=== PATIENT | female | born 1950 | race Caucasian/White ===

== ENCOUNTER → 2017-01-27 | Outpatient (CLI) | payer MEDICARE, OTHER ==
--- NOTE | 2017-01-28 07:34 | REP ---
LEFT FINGERS, FOUR VIEWS: HISTORY: Injury. There is a nondisplaced fracture of the distal phalange of the second digit. There is no dislocation. The joint spaces are normal in appearance. IMPRESSION: Nondisplaced fracture of the distal phalange of the second digit. Signed by Jose Luis Foley MD 01/28/2017 09:01 A
== END ==
LOC: M WUC 17:17
PROVIDERS: ATTEND Physician Assistant
DX: S67.191A Crushing injury of left index finger, initial encounter (principal); W18.30XA Fall on same level, unspecified, initial encounter; Y92.009 Unspecified place in unspecified non-institutional (private) residence as the place of occurrence of the external cause

== ENCOUNTER → 2017-09-24 | Outpatient (CLI) | payer MEDICARE, OTHER | LOC: M WUC 10:29 | DX: S60.212A Contusion of left wrist, initial encounter (principal); X58.XXXA Exposure to other specified factors, initial encounter; Y92.9 Unspecified place or not applicable | CPT/HCPCS: 73100 ==

== ENCOUNTER → 2018-11-03 | Outpatient (REF) | payer MEDICARE, OTHER ==
[2018-11-03 19:33] LABS: MALB URINE SIEMENS 24.9 MG/L; MAU/CREAT RATIO 13.1 MCG/MG (0.0-30.0)
== END ==
LOC: M LAB REF 16:49
PROVIDERS: ATTEND Internal Medicine
DX: E11.9 Type 2 diabetes mellitus without complications (principal)

== ENCOUNTER → 2020-03-15 | Outpatient (CLI) | payer SELFPAY | LOC: M LABSMTC 10:17 | PROVIDERS: ATTEND Pediatrics | DX: Z20.828 Contact with and (suspected) exposure to other viral communicable diseases (principal) ==

== ENCOUNTER → 2021-09-05 | Outpatient (CLI) | payer MEDICARE, OTHER | LOC: M WHC 10:54 | PROVIDERS: ATTEND Internal Medicine | DX: Z12.31 Encounter for screening mammogram for malignant neoplasm of breast (principal) ==

== ENCOUNTER 2022-09-01 11:15 | Emergency (ER) | payer MEDICARE, OTHER ==
[~2022-09-01] VITALS: Ht 157.5 cm; Wt 66.7 kg
[2022-09-01] MEDS ORDERED: PANT40TA29 (12:09)
[2022-09-01] MEDS ORDERED: ATEN25TA (12:09)
[2022-09-01] MEDS ORDERED: CHLO125TA PO (12:09)
[2022-09-01] MEDS ORDERED: MONT10TA97 (12:09)
[2022-09-01] MEDS ORDERED: ASPI1TAB22 PO (12:09)
[2022-09-01] MEDS ORDERED: AMOX875T2 (12:09)
[2022-09-01] MEDS ORDERED: GLYC2TAB18 (12:09)
[2022-09-01] MEDS ORDERED: METF500T13 (12:09)
[2022-09-01] MEDS ORDERED: ATOR80TA59 (12:09)
[2022-09-01] MEDS ORDERED: NORT25CA2 (12:09)
[2022-09-01] MEDS ORDERED: FLUC200T4 (12:09)
[2022-09-01] MEDS ORDERED: LOSA100T46 (12:09)
[2022-09-01] MEDS ORDERED: NS 1,000 ML IV ONE ×2 (12:30→14:35)
[2022-09-01 12:49] LABS: VENOUS BASE EXCESS 1.8 (-2.0-2.0); VENOUS HCO3 27.4 MMOL/L (23.0-27.0); VENOUS O2 SATURATION 77.2 % (60.0-80.0); VENOUS PARTIAL PRESSURE CO2 46.6 mmHg (38.0-50.0); VENOUS PARTIAL PRESSURE O2 42.5 mmHg (30.0-50.0); VENOUS PH 7.388 UNITS (7.330-7.430); VENOUS STANDARD HCO3 25.5 MMOL/L; VENOUS TOTAL CO2 28.9 MMOL/L (24.0-28.0)
[2022-09-01 13:05] LABS: BASO % 0.4 % (0.0-1.0); EOS # 0.2 10^3/uL (0.0-0.5); EOS % 1.5 % (0.0-3.0); HEMATOCRIT 41.4 % (36.0-47.0); HEMOGLOBIN 14.1 g/dl (12.0-15.5); LYMPH # 2.5 10^3/uL (1.5-5.0); LYMPH % 23.7 % (24.0-44.0); MEAN CORPUSCULAR HEMOGLOBIN 29.7 pg (27.0-33.0); MEAN CORPUSCULAR HGB CONC 34.1 g/dl (32.0-36.5); MEAN CORPUSCULAR VOLUME 87.2 fl (80.0-96.0); MONO # 0.8 10^3/uL (0.0-0.8); MONO % 7.8 % (2.0-8.0); NEUTROPHILS % 66.1 % (36.0-66.0); PLATELET COUNT, AUTOMATED 292 10^3/uL (150-450); RED BLOOD COUNT 4.75 10^6/uL (4.00-5.40); WHITE BLOOD COUNT 10.6 10^3/uL (4.0-10.0)
[2022-09-01 13:17] LABS: ALBUMIN 3.4 G/DL (3.2-5.2); BILIRUBIN,DIRECT 0.3 MG/DL (<0.4); BILIRUBIN,TOTAL 0.6 MG/DL (0.3-1.2); MAGNESIUM LEVEL 1.8 MG/DL (1.8-2.4); TOTAL PROTEIN 6.7 G/DL (5.7-8.2)
[2022-09-01 13:18] LABS: ACETONE/KETONE 1.1 MMOL/L (0.02-0.27)
[2022-09-01 13:37] LABS: HEMOGLOBIN A1c 12.4 % (4.0-6.0)
[2022-09-01 14:37] LABS: RSV AMPLIFICATION NEGATIVE (NEGATIVE)
[2022-09-01 16:06] VITALS: BP 161/79
== END 2022-09-01 16:30 | disposition home or self-care (01) ==
LOC: M ED 11:15
DX: E11.65 Type 2 diabetes mellitus with hyperglycemia (principal); I10 Essential (primary) hypertension; E78.5 Hyperlipidemia, unspecified; F10.10 Alcohol abuse, uncomplicated; Z88.5 Allergy status to narcotic agent; Z79.02 Long term (current) use of antithrombotics/antiplatelets; Z79.4 Long term (current) use of insulin; Z79.811 Long term (current) use of aromatase inhibitors; Z79.899 Other long term (current) drug therapy

== ENCOUNTER → 2022-09-03 | Outpatient (REF) | payer MEDICARE, OTHER ==
[~2022-09-03] MED LIST: AMOX875T2; ASPI1TAB22 PO; ATEN25TA; ATOR80TA59; CHLO125TA PO; FLUC200T4; GLYC2TAB18; LOSA100T46; METF500T13; MONT10TA97; NORT25CA2; PANT40TA29
== END ==
LOC: M LAB REF 14:29
PROVIDERS: ATTEND Internal Medicine
DX: R10.9 Unspecified abdominal pain (principal); R74.01 Elevation of levels of liver transaminase levels

== ENCOUNTER → 2022-09-05 | Outpatient (CLI) | payer MEDICARE, OTHER ==
[~2022-09-05] MED LIST changes: +GASTROGRAFIN SOLUTION 30ML As Ordered ONE
== END ==
LOC: M RAD 06:34
PROVIDERS: ATTEND Internal Medicine
DX: R10.11 Right upper quadrant pain (principal); R63.4 Abnormal weight loss; R16.0 Hepatomegaly, not elsewhere classified; Z90.710 Acquired absence of both cervix and uterus; Z90.49 Acquired absence of other specified parts of digestive tract; K76.0 Fatty (change of) liver, not elsewhere classified; K57.30 Diverticulosis of large intestine without perforation or abscess without bleeding
CPT/HCPCS: 74176; Q9963

== ENCOUNTER → 2022-10-12 | Outpatient (REF) | payer MEDICARE, OTHER ==
[~2022-10-12] MED LIST changes: -GASTROGRAFIN SOLUTION 30ML As Ordered ONE
== END ==
LOC: M LAB REF 16:50
PROVIDERS: ATTEND Internal Medicine
DX: E11.65 Type 2 diabetes mellitus with hyperglycemia (principal)

== ENCOUNTER → 2023-09-16 | Outpatient (CLI) | payer MEDICARE, OTHER | LOC: M RAD 08:24 | PROVIDERS: ATTEND Internal Medicine | DX: I70.1 Atherosclerosis of renal artery (principal) ==